=== PATIENT | female | born 1970 | race Caucasian/White ===

== ENCOUNTER → 2021-05-16 09:34 | Outpatient (BNVA) | payer OTHER, SELFPAY | PROVIDERS: PCP Internal Medicine; Referring Provider Internal Medicine; Visit Provider Physician Assistant | DX: E66.9 Obesity, unspecified (principal); M54.9 Dorsalgia, unspecified; G89.29 Other chronic pain; Q05.9 Spina bifida, unspecified; Z68.32 Body mass index [BMI] 32.0-32.9, adult | CPT/HCPCS: 99212 ==

== ENCOUNTER → 2021-06-04 10:33 | Outpatient (BNVA) | payer OTHER, SELFPAY | PROVIDERS: Visit Provider Dietitian, Registered | DX: E66.9 Obesity, unspecified (principal) | CPT/HCPCS: 97802 ==

== ENCOUNTER 2023-11-25 13:55 | Outpatient (RCR) | payer OTHER, SELFPAY | END 2024-01-28 14:47 | disposition home or self-care (01) | LOC: HO.PT 13:55 | PROVIDERS: PCP Internal Medicine; Visit Provider Physician Assistant | DX: M99.05 Segmental and somatic dysfunction of pelvic region (principal) ==